=== PATIENT | male | born 1945 | race African-American/Black ===

== ENCOUNTER 2016-06-16 19:04 | Emergency (ER) | payer BC, OTHER ==
[2016-06-16 19:26] VITALS: BP 141/85; PULSE 73; TEMP 97.5; BMI 32.4
--- NOTE | 2016-06-16 20:15 | PDOC ---
History of Present Illness - General Chief Complaint: Pain, Acute Stated Complaint: LT SHOULDER PAIN Time Seen by Provider: 06/16/16 20:11 History Source: Patient Exam Limitations: No Limitations - History of Present Illness Initial Comments: 06/16/16 20:12 70 yr male with left shoulder pain for one week. Pt also states he has intermittent chest pain with shortness of breath, no shortness of breath no chest pain now. Pt believes he was shoveling before the pain started. Pt took no pain meds [employer]. Pain is reproduced with movement and to touch. 06/16/16 20:37 Occurred: reports: last week Severity: reports: moderate Upper Extremity Pain Location: left: shoulder Method of Injury: reports: other (shoveling) Past History - Past Medical History Allergies/Adverse Reactions: Allergies Allergy/AdvReac Type Severity Reaction Status Date / Time No Known Allergies Allergy Verified 06/16/16 19:20 Home Medications: Ambulatory Orders Folic Acid - 1 mg PO DAILY 09/05/11 Levothyroxine [Synthroid] 100 mcg PO DAILY 09/05/11 Lisinopril/Hydrochlorothiazide [Lisinopril-Hctz 20-12.5 mg Tab] 1 each PO DAILY 09/05/11 Simvastatin 20 mg PO DAILY 09/05/11 Omeprazole [Prilosec] 40 mg PO DAILY 07/19/15 Meclizine HCl [Antivert -] 25 mg PO TID PRN #30 tablet 09/19/15 Methotrexate [Mexate -] 10 mg PO Q7D 09/19/15 Cyclobenzaprine HCl [Flexeril 10 mg] 5 mg PO TID PRN #21 tablet 06/16/16 HTN: Yes Hypercholesterolemia: Yes Suicide Attempt (Hx): No Other medical history: arthrtis - Immunization History Immunization Up to Date: Yes - Psycho/Social/Smoking Cessation Hx Suicidal Ideation: No Smoking Status: No Smoking History: Never smoked Have you smoked in the past 12 months: No Number of Cigarettes Smoked Daily: 0 Hx Alcohol Use: No Drug/Substance Use Hx: No Substance Use Type: None Review of Systems - Review of Systems Able to Perform ROS?: Yes Is the patient limited Wallisian proficient: No Constitutional: No: Symptoms Reported HEENTM: No: Symptoms Reported Respiratory: No: Symptoms reported Cardiac (ROS): No: Symptoms Reported ABD/GI: No: Symptoms Reported : No: Symptoms Reported Musculoskeletal: Yes: See HPI Integumentary: No: Symptoms Reported Neurological: No: Symptoms reported *Physical Exam - Vital Signs Last Vital Signs Temp Pulse Resp BP Pulse Ox 97.5 F L 73 20 141/85 98 06/16/16 19:21 06/16/16 19:21 06/16/16 19:21 06/16/16 19:21 06/16/16 19:21 - Physical Exam General Appearance: Yes: Nourished, Appropriately Dressed HEENT: positive: EOMI, AMARIS, TMs Normal, Pharynx Normal Neck: positive: Supple. negative: Tender Respiratory/Chest: positive: Lungs Clear, Normal Breath Sounds. negative: Chest Tender Cardiovascular: positive: Regular Rhythm, Regular Rate Musculoskeletal: positive: Normal Inspection Extremity: positive: Normal Capillary Refill, Normal Inspection, Tender ( anterior shoulder TTP , pain reproduced with abduction) Integumentary: positive: Normal Color, Dry, Warm Neurologic: positive: deputy director II-XII NML intact, Fully Oriented, Alert, Normal Mood/ Affect, Normal Response, Motor Strength 5/5 Heart Score/ECG Review - Electrocardiogram EKG: Normal - Age Age: >/= 65 - Risk Factors Risk Factors Heart Score: Yes Hx Hypercholesterolemia, Yes Hx Hypertension - ECG Intrepretation Rhythm: Regular Rhythm Comment:: 06/16/16 20:38 possible left atrial enlargement no ST changes no T wave changes Ekg signed by ER doctor Liz. ED Treatment Course - RADIOLOGY Radiology Studies Ordered: Category Date Time Status SHOULDER-LEFT [RAD] Stat Radiology 06/16/16 20:12 Ordered Medical Decision Making - Medical Decision Making 06/16/16 20:14 cc: shoulder pain one week intermittent chest pain , none today pain reporducable will give tylenol (NSAID contraindicated with methotrexate) xray left shoulder 06/16/16 20:38 EKG is NSR heart rate 61 possible atrial enlargement unchanged from , improved from EKG 09/08. *DC/Admit/Observation/Transfer Diagnosis at time of Disposition: Shoulder pain, left Qualifiers: Chronicity: acute Qualified Code(s): M25.512 - Pain in left shoulder - Discharge Dispostion Disposition: HOME Condition at time of disposition: Good - Prescriptions Prescriptions: Cyclobenzaprine HCl [Flexeril 10 mg] 5 mg PO TID PRN #21 tablet PRN Reason: Muscle Spasms - Referrals Referrals: Fabian Chicas MD [Primary Care Provider] - Jordan Harrison MD [Staff Physician] - - Patient Instructions Additional Instructions: follow with on Sunday follow with the orthopedist next week for follow up use the arm sling while awake remove to sleep and bathe do not drive with sling on take tylenol extra strength as directed (975mg every 6-8hrs for pain ) take flexeril the muscle relaxant as directed return to ER for any worsening symptoms
[2016-06-16] MEDS ORDERED: ACETAMINOPHEN 325 MG TABLET (FP) PO ONE (20:18)
[2016-06-16] MEDS ORDERED: ACETAMINOPHEN 325 MG TABLET (FP) ONE (20:20)
--- NOTE | 2016-06-17 18:24 | EKG ---
Test Reason : Blood Pressure : / mmHG Vent. Rate : 061 BPM Atrial Rate : 061 BPM P-R Int : 176 ms QRS Dur : 088 ms QT Int : 430 ms P-R-T Axes : 067 026 018 degrees QTc Int : 432 ms NORMAL SINUS RHYTHM POSSIBLE LEFT ATRIAL ENLARGEMENT BORDERLINE ECG WHEN COMPARED WITH ECG OF 19-SEP-2015 17:07, NO SIGNIFICANT CHANGE WAS FOUND Confirmed by JENIFER SALINAS MD ([id number]) on 06/17/2016 6:24:33 PM Referred By: Confirmed By:JENIFER SALINAS MD
== END 2016-06-16 20:58 | disposition home or self-care (01) ==
LOC: JER 19:04
DX: M25.562 Pain in left knee (principal); I10 Essential (primary) hypertension; E78.00 Pure hypercholesterolemia, unspecified; E03.9 Hypothyroidism, unspecified; M12.9 Arthropathy, unspecified; X50.0XXA Overexertion from strenuous movement or load, initial encounter; X50.9XXA Other and unspecified overexertion or strenuous movements or postures, initial encounter; Y93.H1 Activity, digging, shoveling and raking; Y92.89 Other specified places as the place of occurrence of the external cause
CPT/HCPCS: 73030-TC-LT; 93005; 93010; 99281-25

== ENCOUNTER 2017-03-08 08:38 | Emergency (ER) | payer BC, OTHER ==
[2017-03-08 08:42] VITALS: BP 146/87; PULSE 84; BMI 31.6
--- NOTE | 2017-03-08 09:24 | PDOC ---
History of Present Illness - General Chief Complaint: Nasal Bleeding Stated Complaint: NASAL BLEED Time Seen by Provider: 03/08/17 08:50 - History of Present Illness Initial Comments: 03/08/17 09:28 71 yo M with h/o HTN who presents with nasal bleeding. Blew nose 0645 this AM with subsequent nasal bleeding from both nares. Denies trauma to nose. Bleeding resolved in R nare , but continuous in left nare. Endorses intermittent clotting from nose. Has attempted external manual compression of nose. Denies N/ V, F/C, SOB, lightheadedness, vertigo, blood in mouth.Denies anticoagulation and ASA use. Past History - Past Medical History Allergies/Adverse Reactions: Allergies Allergy/AdvReac Type Severity Reaction Status Date / Time No Known Allergies Allergy Verified 03/08/17 08:38 Home Medications: Ambulatory Orders Folic Acid - 1 mg PO DAILY 09/05/11 Levothyroxine [Synthroid] 100 mcg PO DAILY 09/05/11 Lisinopril/Hydrochlorothiazide [Lisinopril-Hctz 20-12.5 mg Tab] 1 each PO DAILY 09/05/11 Simvastatin 20 mg PO DAILY 09/05/11 Methotrexate [Mexate -] 10 mg PO Q7D 09/19/15 Cephalexin Monohydrate [Keflex -] 500 mg PO BID 5 Days #10 capsule MDD 2 Tab COPD: No HTN: Yes Hypercholesterolemia: Yes - Immunization History Immunization Up to Date: Yes - Suicide/Smoking/Psychosocial Hx Smoking Status: No Smoking History: Never smoked Have you smoked in the past 12 months: No Number of Cigarettes Smoked Daily: 0 Information on smoking cessation initiated: No Hx Alcohol Use: No Drug/Substance Use Hx: No Substance Use Type: None Review of Systems - Review of Systems Comments:: 03/08/17 08:51 GENERAL/CONSTITUTIONAL: No fever or chills. No weakness. HEAD, EYES, EARS, NOSE AND THROAT: + Nasal bleeding. No change in vision. No ear pain or discharge. No sore throat.- CARDIOVASCULAR: No chest pain or shortness of breath RESPIRATORY: No cough, wheezing, or hemoptysis. GASTROINTESTINAL: No nausea, vomiting, diarrhea or constipation. GENITOURINARY: No dysuria, frequency, or change in urination. MUSCULOSKELETAL: No joint or muscle swelling or pain. No neck or back pain. SKIN: No rash NEUROLOGIC: No headache, vertigo, loss of consciousness, or change in strength/ sensation. ENDOCRINE: No increased thirst. No abnormal weight change HEMATOLOGIC/LYMPHATIC: No anemia, easy bleeding, or history of blood clots. ALLERGIC/IMMUNOLOGIC: No hives or skin allergy. *Physical Exam - Vital Signs Last Vital Signs Temp Pulse Resp BP Pulse Ox 84 18 146/87 100 03/08/17 08:39 03/08/17 08:39 03/08/17 08:39 03/08/17 08:39 - Physical Exam Comments: 03/08/17 08:51 GENERAL: Awake, alert, and fully oriented, in no acute distress HEAD: No signs of trauma, normocephalic, atraumatic EYES: PERRLA, EOMI, sclera anicteric, conjunctiva clear ENT: Hearing grossly normal, L nasal bleeding and oropharynx with active bleeding. exudates. Moist mucosa NECK: Normal ROM, supple, no lymphadenopathy, JVD, or masses LUNGS: No distress, speaks full sentences, clear to auscultation bilaterally HEART: Regular rate and rhythm, normal S1 and S2, no murmurs, rubs or gallops, peripheral pulses normal and equal bilaterally. EXTREMITIES : Normal inspection, Normal range of motion, no edema. No clubbing or cyanosis. SKIN: Warm, Dry, normal turgor, no rashes or lesions noted. Procedures - Additional Procedures Additional Procedures: other (Posterior nasal packing. ) Medical Decision Making - Medical Decision Making 03/08/17 09:45 71 yo M with h/o HTN who presents with L sided nasal bleeding beginning at 0645 this AM following blowing his nose. Denies trauma to nose. Bleeding resolved in R nare, but continuous in left nare. Endorses intermittent clotting from nose. Has attempted external manual compression of nose. Denies N/V, F/C, SOB, lightheadedness, vertigo, blood in mouth. Denies anticoagulation and ASA use. Physical exam reveals active bleeding from left nare and postnasal dripping/ bleeding in posterior oropharynx. Hemodynamically stable. Most likely 2/2 posterior epistaxis vs anterior epistaxis. ED Course: 03/08/17 10:31 ED Course: Posterior packing/rhino rocket applied. 03/08/17 10:40 Patient bleeding resolved and stable for d/c with return precautions. Advised to f/u with ENT or ED 72 hours for removal. *DC/Admit/Observation/Transfer Diagnosis at time of Disposition: Posterior epistaxis - Discharge Dispostion Disposition: HOME Condition at time of disposition: Stable Admit: No - Prescriptions Prescriptions: Cephalexin Monohydrate [Keflex -] 500 mg PO BID 5 Days #10 capsule MDD 2 Tab - Referrals Referrals: Rufino Monteiro MD [Staff Physician] - - Patient Instructions Printed Discharge Instructions: DI for Nosebleed Additional Instructions: Please return to the emergency department with any new or worsening symptoms or concerns. Please take Keflex 500 mg two times per day for 5 days. Please f/u with ENT or ED within 72 hours for packing removal - Post Discharge Activity - Attestations Physician Attestion: 03/08/17 10:38 I attest to the information provided in this note.
--- NOTE | 2017-03-08 10:40 | PDOC ---
Attending Attestation - Resident Resident Name: William Parsons - ED Attending Attestation I have performed the following: I have examined & evaluated the patient, The case was reviewed & discussed with the resident, I agree w/resident's findings & plan, Exceptions are as noted - HPI HPI: 03/08/17 10:37 71-year-old male with no past medical history here today complaining of bilateral nose bleed started around 7 AM. Bleeding has been persistent he has applied pressure with no relief the right stopped the left is persistently bleeding denies feeling dizzy lightheaded denies chest pain or shortness of breath not taking any blood thinners no aspirin Plavix or Coumadin. No trauma - Physicial Exam PE: 03/08/17 10:38 Awake alert no acute distress right knee are with crusted blood no active bleeding left Schwartz with active bleeding from the anterior to mid nasal septum does have posterior pharynx with small blood dripping. Cardiac and lung exam is unremarkable abdomen is soft and nontender neuro-alert oriented 3 gait is normal - Medical Decision Making 03/08/17 10:39 Pressure applied the ED without relief. Persistent bleeding in the left Schwartz. Rhino Rocket placed without complications patient tolerated well bleeding ceased. We'll discharge home with Keflex 500 mg twice daily 5 days and referral for ear nose and throat follow-up with Dr. Monteiro or primary doctor or return to ED for removal
== END 2017-03-08 11:05 | disposition home or self-care (01) ==
LOC: JER 08:38
DX: R04.0 Epistaxis (principal); I10 Essential (primary) hypertension; E78.00 Pure hypercholesterolemia, unspecified
CPT/HCPCS: 99281-25

== ENCOUNTER 2018-04-14 20:24 | Emergency (ER) | payer BC, OTHER ==
[2018-04-14 20:36] VITALS: BP 138/75; PULSE 71; TEMP 98.2; BMI 31.6
--- NOTE | 2018-04-14 21:26 | PDOC ---
History of Present Illness - General Chief Complaint: Pain Stated Complaint: PAIN LEFT SIDE Time Seen by Provider: 04/14/18 21:18 - History of Present Illness Initial Comments: 04/14/18 21:24 72-year-old male with a past medical history significant for rheumatoid arthritis dyslipidemia hypertension and hypothyroidism presents for evaluation of left-sided rib pain 2 days. Atraumatic an onset his pain is exacerbated with motion and relieved with rest without radiation symptoms. Past History - Past Medical History Allergies/Adverse Reactions: Allergies Allergy/AdvReac Type Severity Reaction Status Date / Time No Known Allergies Allergy Verified 04/14/18 20:34 Home Medications: Ambulatory Orders Folic Acid - 1 mg PO DAILY 09/05/11 Levothyroxine [Synthroid] 100 mcg PO DAILY 09/05/11 Lisinopril/Hydrochlorothiazide [Lisinopril-Hctz 20-12.5 mg Tab] 1 each PO DAILY 09/05/11 Simvastatin 20 mg PO DAILY 09/05/11 Methotrexate [Mexate -] 10 mg PO Q7D 09/19/15 COPD: No HTN: Yes Hypercholesterolemia: Yes - Immunization History Immunization Up to Date: Yes - Suicide/Smoking/Psychosocial Hx Smoking Status: No Smoking History: Former smoker Have you smoked in the past 12 months: No Number of Cigarettes Smoked Daily: 0 If you are a former smoker, when did you quit?: many years ago cigars Information on smoking cessation initiated: No Hx Alcohol Use: No Drug/Substance Use Hx: No Substance Use Type: None Review of Systems - Review of Systems Cardiac (ROS): Yes: See HPI *Physical Exam - Vital Signs Last Vital Signs Temp Pulse Resp BP Pulse Ox 98.2 F 71 18 138/75 100 04/14/18 20:34 04/14/18 20:34 04/14/18 20:34 04/14/18 20:34 04/14/18 20:34 - Physical Exam Comments: 04/14/18 21:25 HEAD: NC/AT EYES: Conjuntiva clear Ears: Canals and TM's normal NOSE: No d/c THROAT: Moist mucous membrances, oral pharanx clear, uvula midline NECK: Supple without adenopathy CARDIAC: S1 S2 LUNGS: CTA Full and Equal breath sounds; there is reproducible tenderness about the areas of ribs 34 and 5 right under the axilla adjacent to the nipple line. ABDOMEN: Soft NT ND MS: Full ROM in all joints without edema NEUROLOGIC: No gross sensory or motor deficits, NVID SKIN: Normal color and temperature no lesions or rashes Moderate Sedation - Procedure Monitoring Vital Signs: Procedure Monitoring Vital Signs Temperature 98.2 F 04/14/18 20:34 Pulse Rate 71 04/14/18 20:34 Respiratory Rate 18 04/14/18 20:34 Blood Pressure 138/75 04/14/18 20:34 O2 Sat by Pulse Oximetry (%) 100 04/14/18 20:34 ED Treatment Course - RADIOLOGY Radiology Studies Ordered: Category Date Time Status CHEST PA & LAT [RAD] Stat Radiology 04/14/18 21:22 Ordered RIBS-LEFT SIDE [RAD] Stat Radiology 04/14/18 21:22 Ordered Medical Decision Making - Medical Decision Making 04/14/18 22:05 no fx on raidograph, most likely a rib strain, pain is reproduced with palpation and movement. Highly unlikely to be cardiac pain or pulmonary *DC/Admit/Observation/Transfer Diagnosis at time of Disposition: Rib pain on left side - Discharge Dispostion Disposition: HOME Condition at time of disposition: Stable Decision to Admit order: No - Referrals - Patient Instructions Additional Instructions: Return to the emergency room should symptoms worsen or go unresolved. He may take Tylenol as directed for pain. Follow-up with your primary care physician in one to 2 days for further evaluation and treatment options. Your x-rays were normal today. - Post Discharge Activity
--- NOTE | 2018-04-17 13:23 | EKG ---
Test Reason : Blood Pressure : / mmHG Vent. Rate : 061 BPM Atrial Rate : 061 BPM P-R Int : 182 ms QRS Dur : 084 ms QT Int : 418 ms P-R-T Axes : 065 -07 000 degrees QTc Int : 420 ms NORMAL SINUS RHYTHM POSSIBLE LEFT ATRIAL ENLARGEMENT BORDERLINE ECG WHEN COMPARED WITH ECG OF 16-JUN-2016 20:30, NO SIGNIFICANT CHANGE WAS FOUND Confirmed by YULI ATKINSON MD ([id number]) on 04/17/2018 1:23:09 PM Referred By: Confirmed By:YULI ATKINSON MD
== END 2018-04-14 22:12 | disposition home or self-care (01) ==
LOC: JERFT 20:24
DX: R07.81 Pleurodynia (principal); I10 Essential (primary) hypertension; E03.9 Hypothyroidism, unspecified; E78.5 Hyperlipidemia, unspecified; M06.9 Rheumatoid arthritis, unspecified
CPT/HCPCS: 71046-TC-FY; 71101-TC-LT-FY; 93005; 93010; 99281-25

== ENCOUNTER 2020-03-03 07:38 | Emergency (ER) | payer BC, OTHER ==
[2020-03-03 07:58] VITALS: BP 138/75; PULSE 74; TEMP 98.2; BMI 30.7
== END 2020-03-03 11:46 | disposition home or self-care (01) ==
LOC: JER 07:38
DX: S42.402A Unspecified fracture of lower end of left humerus, initial encounter for closed fracture (principal)
CPT/HCPCS: 73070-TC-LT-FY; 99284-25

== ENCOUNTER 2023-08-03 07:13 | Emergency (ER) | payer OTHER, BC ==
[2023-08-03 07:42] VITALS: BP 131/80; PULSE 63; RESP 18; TEMP 98; BMI 29.1
[2023-08-03] MEDS ORDERED: ACETAMINOPHEN 325 MG TABLET (FP) ONE (08:10)
[2023-08-03] MEDS: ACETAMINOPHEN 500 MG TABLET (FP) PO ONE (08:12)
[2023-08-03] MEDS ORDERED: KETOROLAC TROMETHAMINE 30 MG/1 ML VIAL ONE (09:02)
[2023-08-03] MEDS: KETOROLAC TROMETHAMINE 15 MG/ML VIAL IM ONE (09:07)
== END 2023-08-03 11:44 | disposition home or self-care (01) ==
LOC: JERFT 07:13 → JER 07:13 → JERFT 11:44
PROC: 3E0233Z Introduction of Anti-inflammatory into Muscle, Percutaneous Approach (ICD-10-PCS; principal; 2023-08-03)
DX: M25.521 Pain in right elbow (principal); M06.9 Rheumatoid arthritis, unspecified
CPT/HCPCS: 73070-TC-RT-FY; 99284-25

== ENCOUNTER 2023-10-03 21:12 | Emergency (ER) | payer OTHER, BC ==
[2023-10-03 21:16] VITALS: TEMP 97; BMI 31.4
[2023-10-03 21:49] VITALS: RESP 19
[2023-10-03 22:53] VITALS: BP 133/83; PULSE 59
== END 2023-10-03 22:53 | disposition home or self-care (01) ==
LOC: JER 21:12
DX: I10 Essential (primary) hypertension (principal); R51.9 Headache, unspecified; Z87.891 Personal history of nicotine dependence
CPT/HCPCS: 99283-25

== ENCOUNTER 2024-01-03 04:12 | Day surgery (SDC) | payer OTHER, BC ==
[2024-01-02 15:29] VITALS: BMI 31.6
[2024-01-03] MEDS ORDERED: ACETAMINOPHEN 500 MG TABLET (FP) PO PRN (08:53)
[2024-01-03 12:01] VITALS: RESP 18; TEMP 97.9
[2024-01-03] MEDS ORDERED: LIDOCAINE HCL/PF 2% SDV 5ML VIAL ONE (13:16)
[2024-01-03] MEDS: LIDOCAINE HCL 1% PRESERVATIVE FREE - 30ML VIAL IJ ONE (13:28)
[2024-01-03] MEDS: BUPIVACAINE HCL/PF 0.75% 10 ML VIAL NR ONE (13:28)
[2024-01-03 13:45] VITALS: BP 126/69; PULSE 69
== END 2024-01-03 14:27 | disposition home or self-care (01) ==
LOC: JASU-SURG 04:12
PROVIDERS: ATTEND Pain Medicine Pain Medicine
PROC: 3E0T3BZ Introduction of Anesthetic Agent into Peripheral Nerves and Plexi, Percutaneous Approach (ICD-10-PCS; principal; 2024-01-03 13:15)
DX: M47.816 Spondylosis without myelopathy or radiculopathy, lumbar region (principal)
CPT/HCPCS: 76000-TC-FY

== ENCOUNTER 2024-01-31 05:06 | Day surgery (SDC) | payer OTHER, BC ==
[2024-01-29 10:34] VITALS: BMI 31.6
[2024-01-31 14:01] VITALS: RESP 18
[2024-01-31 14:48] VITALS: BP 127/76; PULSE 77; TEMP 98
== END 2024-01-31 14:25 | disposition home or self-care (01) ==
LOC: JASU-SURG 05:06
PROVIDERS: ATTEND Pain Medicine Pain Medicine
PROC: 3E0T33Z Introduction of Anti-inflammatory into Peripheral Nerves and Plexi, Percutaneous Approach (ICD-10-PCS; 2024-01-31)
PROC: 3E0T3BZ Introduction of Anesthetic Agent into Peripheral Nerves and Plexi, Percutaneous Approach (ICD-10-PCS; principal; 2024-01-31 13:15)
DX: M47.816 Spondylosis without myelopathy or radiculopathy, lumbar region (principal)
CPT/HCPCS: 76000-TC-FY

== ENCOUNTER 2024-02-29 04:22 | Day surgery (SDC) | payer OTHER, BC ==
[2024-02-25 10:07] VITALS: BMI 32.4
[~2024-02-29 04:22] MED LIST: ACETAMINOPHEN 500 MG TABLET (FP) PO PRN
[2024-02-29] MEDS ORDERED: TRIAMCINOLONE ACET 40MG/1ML VIAL ONE ×2 (07:40→14:53)
[2024-02-29] MEDS ORDERED: LIDOCAINE HCL/PF 1% SDV 5ML VIAL ONE (07:40)
[2024-02-29] MEDS ORDERED: BUPIVACAINE HCL/PF 0.5% (5MG/ML) 10 ML VIAL ONE (07:40)
[2024-02-29] MEDS ORDERED: BUPIVACAINE HCL/PF 0.25% (2.5MG/ML) 10 ML VIAL ONE (07:40)
[2024-02-29 15:37] VITALS: BP 113/71; PULSE 60; RESP 16; TEMP 97.6
== END 2024-02-29 15:51 | disposition home or self-care (01) ==
LOC: JASU-SURG 04:22
PROVIDERS: ATTEND Pain Medicine Pain Medicine
PROC: 3E0U3BZ Introduction of Anesthetic Agent into Joints, Percutaneous Approach (ICD-10-PCS; 2024-02-29)
PROC: 3E0U33Z Introduction of Anti-inflammatory into Joints, Percutaneous Approach (ICD-10-PCS; principal; 2024-02-29 14:15)
DX: M16.12 Unilateral primary osteoarthritis, left hip (principal)
CPT/HCPCS: 76000-TC-FY

== ENCOUNTER 2024-03-21 04:25 | Day surgery (SDC) | payer OTHER, BC ==
[2024-03-18 09:13] VITALS: BMI 32.4
[2024-03-21] MEDS ORDERED: TRIAMCINOLONE ACET 40MG/1ML VIAL ONE (07:17)
[2024-03-21] MEDS ORDERED: LIDOCAINE HCL/PF 1% SDV 5ML VIAL ONE (07:17)
[2024-03-21] MEDS ORDERED: BUPIVACAINE HCL/PF 0.5% (5MG/ML) 10 ML VIAL ONE (07:17)
[2024-03-21] MEDS ORDERED: ACETAMINOPHEN 500 MG TABLET (FP) PO PRN (08:34)
[2024-03-21 11:15] VITALS: RESP 18
[2024-03-21] MEDS: BUPIVACAINE HCL/PF 0.5% (5 MG/ML) 30 ML VIAL IJ ONE ×5 (12:19→12:21)
[2024-03-21] MEDS: LIDOCAINE HCL 1% PRESERVATIVE FREE - 30ML VIAL IJ ONE ×3 (12:19→12:20)
[2024-03-21] MEDS: IOHEXOL 180 MG/1 ML ML IJ ONE (12:20)
[2024-03-21] MEDS: TRIAMCINOLONE ACET 40MG/1ML VIAL IM ONE (12:21)
[2024-03-21 13:27] VITALS: BP 110/71; PULSE 68; TEMP 98.2
== END 2024-03-21 13:00 | disposition home or self-care (01) ==
LOC: JASU-SURG 04:25
PROVIDERS: ATTEND Pain Medicine Pain Medicine
PROC: 3E0U3BZ Introduction of Anesthetic Agent into Joints, Percutaneous Approach (ICD-10-PCS; 2024-03-21)
PROC: 3E0U33Z Introduction of Anti-inflammatory into Joints, Percutaneous Approach (ICD-10-PCS; principal; 2024-03-21 12:15)
DX: M16.11 Unilateral primary osteoarthritis, right hip (principal)

== ENCOUNTER 2024-05-22 06:53 | Day surgery (SDC) | payer OTHER, BC ==
[2024-05-20 12:26] VITALS: BMI 32.4
[2024-05-22 08:06] VITALS: RESP 18
[2024-05-22] MEDS ORDERED: ACETAMINOPHEN 500 MG TABLET (FP) PO PRN (08:58)
[2024-05-22 10:44] VITALS: BP 125/78; PULSE 60; TEMP 97.8
== END 2024-05-22 10:59 | disposition home or self-care (01) ==
LOC: JASU-SURG 06:53
PROVIDERS: ATTEND Pain Medicine Pain Medicine
PROC: X05133A Destruction of Renal Sympathetic Nerve(s) using Radiofrequency Ablation, Percutaneous Approach, New Technology Group 10 (ICD-10-PCS; principal; 2024-05-22 09:55)
DX: M47.816 Spondylosis without myelopathy or radiculopathy, lumbar region (principal)
CPT/HCPCS: 76000-TC-FY

== ENCOUNTER 2024-06-19 06:41 | Day surgery (SDC) | payer OTHER, BC ==
[2024-06-16 11:08] VITALS: BMI 31.6
[2024-06-19] MEDS ORDERED: BUPIVACAINE HCL/PF 0.25% (2.5MG/ML) 10 ML VIAL ONE (07:36)
[2024-06-19 09:00] VITALS: TEMP 98
[2024-06-19] MEDS: LIDOCAINE HCL/PF 2% SDV 5ML VIAL INF ONE ×2 (09:58)
[2024-06-19] MEDS: BUPIVACAINE HCL/PF 0.75% 10 ML VIAL NR ONE ×3 (09:58)
[2024-06-19] MEDS: DEXAMETHASONE SOD PHOSPHATE 10 MG/1 ML VIAL IM ONE ×2 (09:58)
[2024-06-19] MEDS: LIDOCAINE HCL 1% PRESERVATIVE FREE - 30ML VIAL IJ ONE ×2 (09:58)
[2024-06-19 11:51] VITALS: BP 108/76; PULSE 60; RESP 18
[2024-06-19] MEDS ORDERED: ACETAMINOPHEN 500 MG TABLET (FP) PO PRN (12:24)
== END 2024-06-19 10:55 | disposition home or self-care (01) ==
LOC: JASU-SURG 06:41
PROVIDERS: ATTEND Pain Medicine Pain Medicine
PROC: 015B3ZZ Destruction of Lumbar Nerve, Percutaneous Approach (ICD-10-PCS; principal; 2024-06-19 10:00)
DX: M47.816 Spondylosis without myelopathy or radiculopathy, lumbar region (principal)
CPT/HCPCS: 76000-TC-FY; J1100